=== PATIENT | female | born 1990 | race Hispanic/Latino ===

== ENCOUNTER 2019-02-08 10:27 | Emergency (ER) | payer OTHER ==
[2019-02-08] MEDS ORDERED: HYDROCODONE/ACETAMINOPHEN 5/325 MG TAB ONE (11:03)
[2019-02-08] MEDS ORDERED: CYCLOBENZAPRINE HCL 10 MG TABLET ONE (11:03)
== END 2019-02-08 13:29 | disposition home or self-care (01) ==
LOC: EDH 10:27
DX: S13.9XXA Sprain of joints and ligaments of unspecified parts of neck, initial encounter (principal); S09.90XA Unspecified injury of head, initial encounter; V49.49XA Driver injured in collision with other motor vehicles in traffic accident, initial encounter; Y93.89 Activity, other specified; Y92.89 Other specified places as the place of occurrence of the external cause; Y99.8 Other external cause status
CPT/HCPCS: 70450; 72040; 81025

== ENCOUNTER 2019-10-22 16:24 | Observation (INO) | payer OTHER ==
[~2019-10-22] VITALS: Ht 160 cm; Wt 82.1 kg
[2019-10-22 17:01] LABS: APPEARANCE,URINE Clear (CLEAR); BILIRUBIN,URINE Negative (NEGATIVE); COLOR,URINE Yellow (YELLOW); GLUCOSE, URINE (UA) Negative (NEGATIVE); KETONES,URINE Negative (NEGATIVE); LEUKOCYTE ESTERASE ,URINE Small (NEGATIVE); NITRATE,URINE Negative (NEGATIVE); OCCULT BLOOD,URINE Negative (NEGATIVE); PROTEIN,URINE Negative (NEGATIVE)
[2019-10-22 17:15] LABS: BACTERIA,URINE Few /HPF (None Seen); MUCUS,URINE Few LPF (None Seen); SQUAMOUS EPITHELIAL CELL,UR Moderate /HPF (0-2)
[2019-10-22] MEDS ORDERED: LACTATED RINGERS 1000ML IV SCH (17:30)
[2019-10-22] MEDS ORDERED: CEFTRIAXONE SODIUM 1 GM ONE (17:35)
[2019-10-22] MEDS ORDERED: CEFTRIAXONE SODIUM 1 GM IVP SCH (19:25)
== END 2019-10-22 18:20 | disposition home or self-care (01) ==
LOC: LDH 16:24
PROVIDERS: ADMIT Obstetrics & Gynecology; ATTEND Obstetrics & Gynecology
DX: O26.893 Other specified pregnancy related conditions, third trimester (principal); N89.8 Other specified noninflammatory disorders of vagina; Z3A.29 29 weeks gestation of pregnancy
CPT/HCPCS: 81001; G0378 ×2; J0696; J7120; 96360

== ENCOUNTER 2019-12-06 03:55 | Inpatient (IN) | payer OTHER ==
[~2019-12-06] VITALS: Ht 160 cm; Wt 85.3 kg
[2019-12-06 04:32] LABS: APPEARANCE,URINE SLIGHTLY CLOUDY (CLEAR); BILIRUBIN,URINE Negative (NEGATIVE); COLOR,URINE Yellow (YELLOW); GLUCOSE, URINE (UA) Negative (NEGATIVE); KETONES,URINE Negative (NEGATIVE); LEUKOCYTE ESTERASE ,URINE Small (NEGATIVE); NITRATE,URINE Negative (NEGATIVE); OCCULT BLOOD,URINE Large (NEGATIVE); PROTEIN,URINE Trace mg/dL (NEGATIVE)
[2019-12-06 04:38] LABS: AMPHET/METH SCREEN,URINE NEGATIVE (NEGATIVE); BARBITURATE SCREEN, URINE NEGATIVE (NEGATIVE); BENZODIAZEPINES SCREEN,URINE NEGATIVE (NEGATIVE); CANNABINOID SCREEN,URINE NEGATIVE (NEGATIVE); COCAINE SCREEN,URINE NEGATIVE (NEGATIVE); OPIATE SCREEN,URINE NEGATIVE (NEGATIVE); PHENCYCLIDINE SCREEN,URINE NEGATIVE (NEGATIVE)
[2019-12-06 04:42] LABS: BACTERIA,URINE Few /HPF (None Seen); RBC,URINE 26-50 /HPF (0-1)
[2019-12-06] MEDS ORDERED: LACTATED RINGERS 1000ML 1,000 ML IV PRN (04:54)
[2019-12-06] MEDS ORDERED: AMPICILLIN 2GM+NS 100ML 100 ML IV SCH (05:00)
[2019-12-06] MEDS ORDERED: OXYTOCIN-LR 20 UNITS/1000 ML 1,000 ML IV SCH ×2 (05:00→08:15)
[2019-12-06] MEDS ORDERED: AMPICILLIN 2GM+NS 100ML 100 ML IV ONE (05:02)
[2019-12-06] MEDS ORDERED: LACTATED RINGERS 1000ML 1,000 ML IV ONE (05:02)
[2019-12-06 05:04] VITALS: BP 101/59
[2019-12-06 05:36] LABS: HEMATOCRIT 38.1 % (36-48); MEAN CORPUSCULAR HEMOGLOBIN 28.1 pg (27.0-33.0); MEAN CORPUSCULAR HGB CONC 32.3 g/dL (32.0-36.0); MEAN CORPUSCULAR VOLUME 87.2 fL (79-99); RED BLOOD CELL COUNT(AUTO) 4.37 MIL/uL (4.00-5.50); RED CELL DISTRIBUTION WIDTH 13.9 % (11.0-15.5); WHITE BLOOD COUNT (AUTO) 12.4 K/uL (4.8-10.8)
[2019-12-06 07:24] LABS: RAPID PLASMA REAGIN NONREACTIVE (NONREACTIVE)
[2019-12-06] MEDS ORDERED: OXYTOCIN 10 USP UNITS/ML 20 UNIT in LACTATED RINGERS 1000ML 1,000 ML IV SCH (08:00)
[2019-12-06] MEDS ORDERED: AMPICILLIN 1GM+NS 50ML 50 ML IV SCH (09:00)
[2019-12-06] MEDS ORDERED: MEPERIDINE-PF 50 MG/ML SYG ONE (11:59)
[2019-12-06] MEDS ORDERED: PROMETHAZINE HCL 25 MG/ML 1ML AMPULE IM SCH (12:00)
[2019-12-06] MEDS ORDERED: MEPERIDINE-PF 50 MG/ML SYG IVP SCH (12:00)
[2019-12-06] MEDS ORDERED: LIDOCAINE HCL 1% 20 ML VIAL ONE (13:07)
[2019-12-06] MEDS ORDERED: WITCH HAZEL 1 PAD TP PRN (13:30)
[2019-12-06] MEDS ORDERED: ACETAMINOPHEN-CODEINE 300/30MG TAB PO PRN (13:30)
[2019-12-06] MEDS ORDERED: ACETAMINOPHEN 325 MG TAB PO PRN (13:30)
[2019-12-06] MEDS ORDERED: BENZOCAINE/LANOLIN/ALOE VERA 60 ML AEROSOL TP PRN (13:30)
[2019-12-06] MEDS ORDERED: LANOLIN 30GM OINTMENT TP PRN (13:30)
--- NOTE | 2019-12-06 15:10 | NUR ---
REPORT RECEIVED FROM Eloise CAMPUZANO RN AND PATIENT TRANSFERED AT THIS TIME. PT ORIENTED TO UNIT AND CALL LIGHT LEFT AT BEDSIDE TO CALL FOR ASSISTANCE NEEDED. SITZ BATH, DERMAPLAST SPRAY AND TUCKS ISSUED AND INSTRUCTED ON USE FOR 2ND DEGREE MIDLINE EPISIOTOMY.
[2019-12-06 15:13] VITALS: BP 113/63
[2019-12-06] MEDS: IBUPROFEN 600 MG TABLET PO PRN (15:43)
[2019-12-06] MEDS: DIPH,PERTUSS(ACELL),TET VAC/PF 0.5 ML VIAL IM SCH ×2 (15:56→22:46)
[2019-12-06] MEDS ORDERED: PNV11TAB5 PO (16:58)
--- NOTE | 2019-12-06 19:15 | NUR ---
REPORT GIVEN TO Eloise ROSENBERG RN AND PATIENT CARE TRANSFERED AT THIS TIME.
[2019-12-06 19:29] VITALS: BP 107/70
[2019-12-06] MEDS: DOCUSATE SODIUM 100 MG CAP PO SCH (21:03)
[2019-12-06 23:35] VITALS: BP 115/68
[2019-12-07 03:00] VITALS: BP 98/75
[2019-12-07 07:09] VITALS: BP 102/65
--- NOTE | 2019-12-07 08:30 | NUR ---
DR. VALENTINE ROUNDED AND DISCHARGED PATIENT TO HOME IF BABY IS DISCHARGED. OTHERWISE PATIENT COULD STAY IF BABY STAYS.
[2019-12-07] MEDS: DOCUSATE SODIUM 100 MG CAP PO SCH ×2 (09:05→20:50)
[2019-12-07] MEDS: IBUPROFEN 600 MG TABLET PO PRN (09:07)
--- NOTE | 2019-12-07 10:30 | NUR ---
PATIENT WAS NOTIFIED THAT BABY WOULD BE STAYING AND PATIENT INDICATED WANTING TO STAY TO CONTINUE HER BABY. WAS MADE AWARE OF DR. VALENTINE'S ORDER TO DISCHARGE IF BABY WAS DISCHARGED.
[2019-12-07 11:18] VITALS: BP 105/66
[2019-12-07 16:05] VITALS: BP 120/64
--- NOTE | 2019-12-07 17:30 | NUR ---
PATIENT HAD HER DINNER AND WAS ASKED IF NEEDING PAIN MEDICATION AND PATIENT DENIES PAIN. OFFERED MOTRIN AND INDICATED NOT NEEDING MOTRIN AT THIS TIME.
[2019-12-07 19:30] VITALS: BP 98/63
[2019-12-07] MEDS: DIPH,PERTUSS(ACELL),TET VAC/PF 0.5 ML VIAL IM SCH (19:55)
[2019-12-07 23:36] VITALS: BP 100/64
[2019-12-08 03:35] VITALS: BP 104/64
[2019-12-08 08:10] VITALS: BP 112/64
[2019-12-08] MEDS: IBUPROFEN 600 MG TABLET PO PRN (09:25)
[2019-12-08] MEDS: DOCUSATE SODIUM 100 MG CAP PO SCH (09:25)
--- NOTE | 2019-12-08 12:05 | NUR ---
DISCHARGE PT LEFT UNIT VIA WHEELCHAIR, ACCOMPANIED BY MOTHER. DENIED PAIN AND HAD NO COMPLAINTS. BABY TO STAY IN NURSERY FOR CONTINUITY OF CARE. PT TRANSPORTED BY PERSONAL VEHICLE.
[2019-12-09 08:14] LABS: HEPATITIS Bs ANTIGEN SCREEN P Negative (Negative)
== END 2019-12-08 12:05 | disposition home or self-care (01) | DRG 805 ==
LOC: EDH 03:55 → OBSVTOIN 03:56 → LDH 03:56 → WSH 15:10
PROVIDERS: ADMIT Obstetrics & Gynecology; ATTEND Obstetrics & Gynecology
PROC: 10E0XZZ Delivery of Products of Conception, External Approach (ICD-10-PCS; principal; 2019-12-06)
PROC: 0W8NXZZ Division of Female Perineum, External Approach (ICD-10-PCS; 2019-12-06)
PROC: 3E0234Z Introduction of Serum, Toxoid and Vaccine into Muscle, Percutaneous Approach (ICD-10-PCS; 2019-12-06)
DX: O69.81X0 Labor and delivery complicated by cord around neck, without compression, not applicable or unspecified (principal); O60.14X0 Preterm labor third trimester with preterm delivery third trimester, not applicable or unspecified; Z37.0 Single live birth; Z3A.35 35 weeks gestation of pregnancy; Z23 Encounter for immunization
CPT/HCPCS: 36415; 80305; 81001; 85027; 86592; 86701; 86850; 86900; 86901; 87340; 87390; 90715; G0378; J0290; J2175; J2590; J7120